=== PATIENT | male | born 1950 | race Caucasian/White ===

== ENCOUNTER 2020-02-26 23:24 | Observation (INO) | payer MEDICARE, SELFPAY ==
--- NOTE | ~2020-02-26 | XR_ITS ---
EXAMINATION: XR chest 1V portable DATE: 02/27/2020 02:06 INDICATION: Shortness of breath. TECHNIQUE: A single frontal view of the chest was obtained on 2 radiographs. COMPARISON: Chest 2 views 11/08/2011 FINDINGS: The chest demonstrates clear lungs without pneumonia, pleural effusion, or pneumothorax. Th e heart size is normal. IMPRESSION: 1. No acute cardiopulmonary disease. Reviewed, dictated and finalized at location A.
--- NOTE | ~2020-02-26 | CT_ITS ---
EXAMINATION: CT brain wo con DATE: 02/27/2020 00:24 INDICATION: Syncope. TECHNIQUE: Computed tomography (CT) of the head was performed without intravenous contrast. The mA wa s adjusted according to patient size. Iterative reconstruction technique was employed. The dose-lengt h product was 681.00 mGy-cm. COMPARISON: None FINDINGS: There is no intracranial hemorrhage, acute infarction, or abnormal intracranial mass lesion . The ventricles are normal in size. The orbits are normal. There is mild mucosal thickening in the p aranasal sinuses. There is a mucous retention cyst in right maxillary sinus. The mastoid air cells ar e normal. IMPRESSION: 1. Normal brain. Reviewed, dictated and finalized at location A. IMPRESSION: 1. Normal brain.
[2020-02-26 23:21] VITALS: BP 114/50; PULSE 66; RESP 18; TEMP 36.6; O2SAT 98
--- NOTE | 2020-02-26 23:34 | ECG_ITS ---
Measurements Intervals [place] Rate: 65 P: -31 AR: 168 QRS: 48 QRSD: 99 T: 70 QT: 398 QTc: 417 Interpretive Statements SINUS RHYTHM BORDERLINE ST-T WAVE ABNORMALITY- DIFFUSE LEADS BASELINE ARTIFACT- I, II, III, AVR BORDERLINE ECG Electronically Signed On 02-27-2020 6:58:52 CDT by Venancio Ahmadi D.O.
[2020-02-26 23:44] LABS: Basophils Absolute Auto 0.1 K/mm3 (0.0-0.1); Basophils Percent Auto 0.6 % (0.2-1.2); Eosinophils Absolute Auto 0.1 K/mm3 (0-0.3); Eosinophils Percent Auto 0.8 % (0-4.4); Hematocrit 28.5 % (42.0-52.0); Hemoglobin 9.5 g/dL (14.0-18.0); Immature Granulocyte Absolute 0.05 K/mm3 (0.00-0.031); Immature Granulocyte Percent A 0.4 % (0-0.5); Lymphocytes Absolute Auto 2.16 K/mm3 (0.9-3.2); Lymphocytes Percent Auto 18.8 % (18.3-44.2); Mean Corpuscular HGB Conc 33.3 g/dl (32-36); Mean Corpuscular Hemoglobin 28.8 pg (26-34); Mean Corpuscular Volume 86.4 fl (80-100); Mean Platelet Volume 10.5 fl (7.4-10.4); Monocytes Percent Auto 8.6 % (2.6-8.5); Neutrophils Absolute Auto 8.1 K/mm3 (1.3-6.7); Neutrophils Percent Auto 70.8 % (45.5-73.1); Platelet Count Result 238 k/mm3 (150-375); Red Cell Distribution Width 14.5 % (11.5-14.5); White Blood Count 11.5 K/mm3 (4.5-10.0)
[2020-02-26 23:55] LABS: Anion Gap 9 mmol/L (8-16); Blood Urea Nitrogen 50 mg/dL (9-20); Calcium 8.5 mg/dL (8.4-10.2); Carbon Dioxide 25 mmol/L (22-30); Chloride 101 mmol/L (98-107); Estimated CRCL calculation 32 ml/min; Estimated Glomerular Filt Rate 25; Glucose 213 mg/dL (75-110); Potassium 3.2 mmol/L (3.4-5.0); Sodium 135 mmol/L (137-145)
--- NOTE | 2020-02-26 23:59 | ED.CHESTPAIN ---
HPI - Chest Pain General Chief Complaint: Chest Pain Stated Complaint: chest pain Time Seen by Provider: 02/26/20 23:58 History of Present Illness HPI narrative: Pt c/o chest discomfort, moderated, midsternal, non radiating, started tonight, took 1 ntg, provided slight relief, took another one and it dropped me , states he briefly lost consciousness after taking the second ntg but it also relieved his chest pain. Onset: during rest Related Data Home Medications Medication Instructions Recorded Confirmed atorvastatin 40 mg PO DAILY 02/27/20 diphenhydramine HCl 25 mg PO BID 02/27/20 dulaglutide [Trulicity] mg SUBCUT 02/27/20 fluticasone propionate 50 mcg INTRANASAL DAILY 02/27/20 furosemide 40 mg PO BID 02/27/20 glucosamine sulfate [Glucosamine] 1,500 mg PO DAILY 02/27/20 hydralazine 20 mg PO TID 02/27/20 hydralazine 25 mg PO TID 02/27/20 insulin aspart U-100 [Novolog 40 unit SUBCUT TID 02/27/20 Flexpen U-100 Insulin] insulin degludec [Tresiba 80 unit SUBCUT DAILY 02/27/20 FlexTouch U-200] lisinopril 20 mg PO DAILY 02/27/20 nitroglycerin 0.4 mg SUBLINGUAL PRN 02/27/20 omeprazole 40 mg PO DAILY 02/27/20 verapamil 240 mg PO DAILY 02/27/20 Allergies Allergy/AdvReac Type Severity Reaction Status Date / Time No Known Allergies Allergy Verified 02/27/20 00:06 Review of Systems Review of Systems: All systems reviewed & are unremarkable except as noted in HPI and below Constitutional: Constitutional: Denies body ache(s), Denies chills, Denies excessive sweating, Denies fatigue, Denies fever(s), Denies headache(s), Denies lethargy, Denies malaise, Denies weakness and Denies weight loss Eyes: Eyes: Denies blurry vision, Denies change in vision and Denies loss of vision ENT: Denies dizziness, Denies ear discharge, Denies headache(s), Denies lip swelling, Denies epistaxis, Denies nasal congestion, Denies neck pain, Denies throat swelling and Denies tongue swelling Cardiovascular: Cardiovascular: Denies diaphoresis, Denies rapid heart rate, Denies edema, Denies irregular heart rhythm, Denies lightheadedness, Denies palpitations, Denies dyspnea and Denies dyspnea on exertion Respiratory: Respiratory: Denies chest congestion, Denies cough, Denies hemoptysis, Denies dyspnea and Denies dyspnea on exertion Gastrointestinal: Gastrointestinal: Denies abdominal pain, Denies melena, Denies hematochezia, Denies diarrhea, Denies nausea, Denies vomiting and Denies hematemesis Musculoskeletal: Musculoskeletal: Denies abnormal gait, Denies deformity, Denies joint swelling, Denies limited range of motion, Denies neck pain and Denies numbness Neurologic: Denies Abnormal speech present, Denies abnormal gait, Denies confusion, Denies dizziness, Denies headache(s), Denies focal weakness, Denies loss of vision, Denies numbness, Denies Other visual disturbances and Denies Sensory deficit (Neuro) Psychiatric: Psychiatric: Denies confusion, Denies depression, Denies auditory hallucinations, Denies homicidal ideation and Denies suicidal ideation Endocrine: Endocrine: Denies cold intolerance, Denies excessive sweating, Denies fatigue, Denies heat intolerance and Denies palpitations Hematologic/Lymphatic: Hematologic/Lymphatic: Denies easy bleeding and Denies easy bruising Allergic/Immunologic: Allergic/Immunologic: Denies lip swelling, Denies throat swelling and Denies tongue swelling Exam Const: General: cooperative, comfortable, no acute distress, well developed, alert and awake; No confusion Nutritional Appearance: obese Orientation/consciousness: oriented to person, oriented to place, oriented to time, patient oriented x3 and No confusion Limitations: no limitations HENMT: Head: normal to inspection, normocephalic and atraumatic Ears: hearing grossly normal bilaterally, TM normal on the right and TM normal on the left General nose exam: Normal external nose present, Normal nares present and No nasal discharge present Face and si
[2020-02-27 00:03] LABS: Partial Thromboplastin Time 30.8 SECONDS (22.3-36.8)
[2020-02-27 00:16] LABS: Troponin I 0.046 ng/mL (0.000-0.034)
[2020-02-27 00:30] VITALS: BP 132/53; PULSE 71; RESP 16; O2SAT 95
[2020-02-27 01:30] VITALS: BP 127/54; PULSE 74; RESP 15; O2SAT 99
[2020-02-27 02:37] VITALS: BP 93/33; PULSE 71; RESP 15; O2SAT 99
[2020-02-27] MEDS: ASPIRIN 81 MG CHEWABLE TABLET 324 MG PO (02:37)
[2020-02-27 02:54] VITALS: BP 148/61; PULSE 72; RESP 20; TEMP 36.7; O2SAT 96; BMI 43.0
--- NOTE | 2020-02-27 03:02 | ADMGEN ---
This patient, Geovany Mcdonald, was admitted to IMU Room 214-01 FROM ER 02/27/20251. Patient/family oriented to hospital policies and general routines including ID bracelet, bed and alarms, visiting hours, pain management, procedures, bathroom and other care routines, personal items, smoking policy, room service/diet, and visiting hours. Valuables list has been completed. Information on how to activate the Rapid Response Team has been discussed. Patient/Family are encouraged to report perceived risks to care and to ask questions if they do not understand what they are told or what they should do.
[2020-02-27 03:39] LABS: Troponin I 0.066 ng/mL (0.000-0.034)
[2020-02-27 04:00] VITALS: PULSE 88
--- NOTE | 2020-02-27 04:37 | PC.NURSE ---
0400 PT. VERY UPSET BECAUSE HE WANTS HIS NOSE SPRAY AFRIN AND IS NOT REORDERING THIS MED. DUE TO CONTRAINDICATION. EXPLAINED TO PT. THIS AND HE BECAME VERY IRRATE/CUSSING AND AGGRESSIVE. ON UNIT AND MADE AWARE OF PT. BEHAVIOR AND THREATENING TO SIGN OUT AMA. WILL NOT SIGN AMA PAPERS. 0430 PT. BY NURSES STATION DRESSED TO GO HOME. [place]PLOCK REMOVED AND PT. ESCORTED TO [facility]. SPOKE WITH ABOUT PT. LEAVING WILL BE HERE TO PICK HIM UP.SHARRI SHENGAS GENERATOR OPERATOR NURSE SPOKE WITH PT. ALSO AND PT. STILL LEAVING. SERJIO CHACON. ALSO NOTIFIED.
--- NOTE | 2020-02-27 09:30 | PM.IMHP ---
H&P: HPI History of Present Illness Date/Time: 02/27/20 09:30 Chief complaint: chest pain, syncope Narrative: the patient was not evaluated by me. The patient became irate and agitated when his home Afrin was not continued. The patient was admitted to the hospital for cardiac chest pain and non STEMI. The the patient was educated as the fact the Afrin was not going to be continued because Afrin increases the risk of angina and arrhythmia. The patient was offered nasal saline to help with nasal congestion. The patient was not willing to try another medication in became verbally abusive to staff. The patient was no longer willing to stay in the hospital and despite educating patient to the risks of leaving including sudden cardiac the patient chose to leave the hospital against medical advice. COUNTS INCLUDE 234 BEDS AT THE [facility] Past Medical History Medical History (Updated 02/27/20 @ 09:34 by Gisela Phillips DO) COPD (chronic obstructive pulmonary disease) Diabetes mellitus Essential hypertension Obstructive sleep apnea Social History Social History Smoking packs per day: 3 Smoking cigarettes per day: 60.0 Years smoked: 40 Smoking pack-years: 120.00 Smoking status: Former smoker Smoking end date: 06/05/09 Alcohol intake: current Drinks per week: 1 Substance use: never Gender identity (if verbalized by the patient): Male Sexual Orientation (if Verbalized by the Patient): Straight or Heterosexual Spiritual care concerns: No Meds Home Medications and Allergies Home Medications Medication Instructions Recorded Confirmed Type aspirin 81 mg PO DAILY 02/27/20 02/27/20 History atorvastatin 40 mg PO DAILY 02/27/20 02/27/20 History budesonide-formoterol [Symbicort] 1 puff INHALATION Q12H PRN 02/27/20 02/27/20 History diphenhydramine HCl 25 mg PO BID 02/27/20 02/27/20 History dulaglutide [Trulicity] 1.5 mg SUBCUT WEEKLY 02/27/20 02/27/20 History fluticasone propionate 50 mcg INTRANASAL DAILY 02/27/20 02/27/20 History furosemide 40 mg PO BID 02/27/20 02/27/20 History glucosamine sulfate [Glucosamine] 1,500 mg PO DAILY 02/27/20 02/27/20 History hydralazine 20 mg PO TID 02/27/20 02/27/20 History hydralazine 25 mg PO TID 02/27/20 02/27/20 History insulin aspart U-100 [Novolog 40 unit SUBCUT TID 02/27/20 02/27/20 History Flexpen U-100 Insulin] insulin degludec [Tresiba 80 unit SUBCUT DAILY 02/27/20 02/27/20 History FlexTouch U-200] lisinopril 20 mg PO BID 02/27/20 02/27/20 History nitroglycerin 0.4 mg SUBLINGUAL PRN PRN 02/27/20 02/27/20 History oxymetazoline [Afrin Sinus 1 spray INTRANASAL Q12H PRN 02/27/20 02/27/20 History (oxymetazoline)] verapamil 240 mg PO DAILY 02/27/20 02/27/20 History Allergies Allergy/AdvReac Type Severity Reaction Status Date / Time No Known Allergies Allergy Verified 02/27/20 00:06 Vital Signs Vital Signs - 24 hr 02/26/20 23:21 02/27/20 00:30 02/27/20 01:30 Temperature 97.8 F Pulse Rate 66 71 74 Respiratory Rate 18 16 15 Blood Pressure 114/50 L 132/53 L 127/54 L Pulse Oximetry 98 95 99 02/27/20 02:37 02/27/20 02:54 02/27/20 04:00 Temperature 98.0 F Pulse Rate 71 72 88 Respiratory Rate 15 20 Blood Pressure 93/33 L 148/61 H Pulse Oximetry 99 96 H&P: Results Labs Labs: Short CBC 02/26/20 Range/Units 23:39 WBC 11.5 H (4.5-10.0) K/mm3 Hgb 9.5 L (14.0-18.0) g/dL Hct 28.5 L (42.0-52.0) % Plt Count 238 (150-375) k/mm3 BMP 02/26/20 23:39 Sodium 135 L Potassium 3.2 L Chloride 101 Carbon Dioxide 25 BUN 50 H Creatinine 2.60 H Glucose 213 H Calcium 8.5 Cardiac Enzymes 02/26/20 02/27/20 Range/Units 23:39 02:59 Troponin I 0.046 H* 0.066 H* D (0.000-0.034) ng/mL Assessment and Plan Assessment and plan (1) Chest pain: Qualifiers: Chest pain type: chest pain due to myocardial ischemia Ischemic chest pain type: stable angina pectoris Qualified Code(s): I20.8 - Other forms of angina
== END 2020-02-27 04:45 | disposition left against medical advice (07) ==
LOC: ANHED 02-27 01:55 → ANHIMU 02-27 02:32
PROVIDERS: Emergency Medicine; Admitting Provider Internal Medicine; Emergency Provider Emergency Medicine; PCP Family Medicine; Visit Provider Internal Medicine
DX: I21.4 Non-ST elevation (NSTEMI) myocardial infarction (principal); I20.8 Other forms of angina pectoris; R55 Syncope and collapse; Z53.29 Procedure and treatment not carried out because of patient's decision for other reasons; J44.9 Chronic obstructive pulmonary disease, unspecified; I10 Essential (primary) hypertension; E11.9 Type 2 diabetes mellitus without complications; G47.33 Obstructive sleep apnea (adult) (pediatric); Z87.891 Personal history of nicotine dependence; Z79.4 Long term (current) use of insulin; Z79.82 Long term (current) use of aspirin
CPT/HCPCS: 36415; 70450; 71045; 80048; 84484; 85025; 85730; 93005; 99285; A9270; G0378